=== PATIENT | female | born 1995 | race Caucasian/White ===

== ENCOUNTER 2024-05-01 11:57 | Emergency (ER) | payer OTHER, SELFPAY ==
--- NOTE | 2024-05-01 12:12 | ED_ITS ---
HPI - General Adult General Chief complaint: Skin/Abscess/Foreign Body Stated complaint: l thigh bite-infected Time Seen by Provider: 05/01/24 12:18 Source: patient Mode of arrival: ambulatory Limitations: no limitations History of Present Illness ED Provider: Doni HPI narrative: Patient is a 28-year-old assigned a female at who identifies as male presenting to the emergency department with complaint of painful red lump to left groin area for the past 3 days. States initially began as an irritated area. Unsure if this is an insect bite. Reports some purulent drainage. Denies fevers/chills/body aches. States last night felt lightheaded due to pain. complaint: groin mass Onset (ago): day(s) Quality: aching Related Data Previous Rx's ?Medication ?Instructions ?Recorded cephalexin 500 mg capsule 500 mg PO QID #27 caps 05/01/24 Allergies Allergy/AdvReac Type Severity Reaction Status Date / Time Sulfa (Sulfonamide Allergy Hives Verified 05/01/24 12:15 Antibiotics) Review of Systems 2 Review of Systems: As per HPI Yes all other systems are reviewed and are negative [facility] Social History Social History Advance Directives: No Advance Directives Information Provided: Yes Physical Exam ED Vital Signs: Vital Signs - 24 hr 05/01/24 12:13 05/01/24 12:45 Temperature 98.6 F 98.6 F Pulse Rate 119 H 119 H Respiratory Rate 18 18 Blood Pressure 111/78 111/78 Pulse Oximetry 96 96 Oxygen Delivery Method Room Air Room Air BMI result Body Mass Index 23.0 Vital signs have been reviewed and appear to be correct. Blood pressure normal. Heart rate slightly tachycardic. Respiratory rate normal. Temperature normal. Oxygen saturation normal. Skin Full body images: 2 1. 1cm area of erythema with central opening, no fluctuance, no lymphadenopathy Course Course Course Narrative: RME: [facility]One by KRYSTIAN Kern. 28 yold Transgender male presents to the ED for ear left thigh insect bite that occurred three days ago. now has left thigh redness and pain. Patient to be seen in [facility] Medications Administered Discontinued Medications Generic Name Dose Route Start Last Admin Trade Name Freq PRN Reason Stop Dose Admin Cephalexin HCl 500 mg 05/01/24 12:24 05/01/24 12:28 Cephalexin 500 Mg Capsule PO 05/01/24 12:25 500 mg ONCE ONE Administration Medical Decision Making Medical Decision Making [facility] Narrative: Patient is a 28-year-old assigned a female at who identifies as male presenting to the emergency department with complaint of painful red lump to left groin area for the past 3 days. On exam patient is awake, A+Ox3, mildly tachycardic likely due to anxiety, VS otherwise WNL, afebrile, normal neurological exam without focal deficits, physical exam findings as above. Given reported symptoms and physical exam findings, initial differential includes folliculitis, cellulitis. Do not suspect bacteremia, no lymphadenopathy, no fever. Will treat with keflex. Return precautions discussed. Follow up with PCP. Patient verbalized understanding of and agreement with plan. Differential Diagnosis Differential Diagnoses: The differential diagnosis associated with the presentation includes As per [facility] External Record Review External record reviewed: Inpatient record, Office record and Outpatient record Prescription Management I considered prescription management with: Antibiotic Discharge Plan Discharge Clinical Impression: Folliculitis Patient Disposition: Home, Self-Care Instructions: Cephalexin (By mouth), Folliculitis (ED) Additional Instructions: You have been evaluated in the emergency department today for skin infection, also known as folliculitis. If the area of inflammation was outlined today in the ER, please return to the ER immediately if the area of redness increases beyond the border. Please take your prescribed antibiotics as directed for the full course of the medication. Apply warm compresses several times daily. Do not attempt to pop or press on the area. You can use Tylenol or ibuprofen per package instructions every 6 hours as needed for pain. If necessary, you can alternate these medications so that you can take one medication every 3 hours. For instance, at noon take ibuprofen, then at 3:00 p.m. take Tylenol, then at 6:00 p.m. take ibuprofen. Please schedule an appointment for follow-up with your primary care physician as soon as possible. Return to the emergency department if you experience recurrent vomiting, fevers greater than 100.4? F, increasing area of redness, warmth around the area, foul-smelling discharge from the area, increased tenderness around the area, or any other concerning symptoms. Prescriptions: New cephalexin 500 mg capsule 500 mg PO QID Qty: 27 0RF Interventions: ED Discharge Assessment Last Done: 05/01/24 12:45 Discharge Date/Time: 05/01/24 12:46 Print Language: Vietnamese
[2024-05-01 12:13] VITALS: BP 111/78; PULSE 119; RESP 18; TEMP 37; O2SAT 96; BMI 23.0
[2024-05-01] MEDS: cephALEXin 500 MG CAPSULE PO (12:28)
[2024-05-01 12:45] VITALS: BP 111/78; PULSE 119; RESP 18; TEMP 37; O2SAT 96
== END 2024-05-01 12:46 | disposition home or self-care (01) ==
PROVIDERS: Emergency Provider Emergency Medicine
DX: L73.9 Follicular disorder, unspecified (principal)
CPT/HCPCS: 99282